=== PATIENT | female | born 2000 | race African-American/Black ===

== ENCOUNTER 2023-01-05 16:42 | Emergency (ER) | payer OTHER ==
[~2023-01-05] VITALS: Ht 157.5 cm; Wt 56.8 kg
[2023-01-05 17:04] LABS: BASO % 0.4 % (0.0-2.0); EOS % 0.4 % (0.0-4.0); GRAN # 4.3 K/mm3 (1.4-6.5); GRAN % 62.3 % (42.2-75.2); HEMOGLOBIN 12.2 g/dl (12.5-16.0); LYMPH # 1.7 K/mm3 (1.2-3.4); LYMPH % 24.2 % (20.0-51.0); MEAN CELL VOLUME 88 fl (80.0-100.0); MEAN CORPUSCULAR HEMOGLOBIN 31 pg (27-31); MEAN CORPUSCULAR HGB CONC 35 g/dl (33.0-37.0); MEAN PLATELET VOLUME 10.2 fl (7.4-10.4); MONO # 0.9 K/mm3 (0.1-0.6); MONO % 12.6 % (1.7-9.3); PLATELET COUNT 221 K/mm3 (130-400); RED BLOOD COUNT 3.95 M/mm3 (4.10-5.30); REDCELL DISTRIBUTION WIDTH-CV 12.1 % (11.5-14.5)
[2023-01-05 17:05] LABS: HEMATOCRIT 34.7 % (37.0-47.0)
[2023-01-05 17:08] LABS: COLLECTION METHOD CLEAN CATCH
[2023-01-05 17:32] LABS: BILIRUBIN,TOTAL 0.4 mg/dL (0.2-1.2); CALCIUM 9.3 mg/dL (8.4-10.2); CREATININE, serum 0.66 mg/dL (0.57-1.11); POTASSIUM 3.9 mmol/L (3.5-4.5); TOTAL PROTEIN 7.3 gm/dL (6.2-8.1)
[2023-01-05 17:50] LABS: MUCOUS Present (NOT PRESENT); URINE BACTERIA Rare /hpf (NONE SEEN); URINE RBC 0-2 /hpf (0-2)
[2023-01-05 17:51] LABS: PH 6.5 (5-8); URINE APPEARANCE Hazy (CLEAR/HAZY); URINE COLOR Yellow (YELLOW); URINE PROTEIN(semi-quant) Negative (NEGATIVE)
[2023-01-05 17:52] LABS: URINE BLOOD Negative (NEGATIVE); URINE GLUCOSE Negative (NEGATIVE); URINE KETONE 1+ (NEGATIVE); URINE NITRATE Negative (NEGATIVE); URINE UROBILINOGEN 0.2 (NEGATIVE)
[2023-01-05 18:39] VITALS: BP 126/79; PULSE 94; TEMP 98
== END 2023-01-05 18:33 | disposition home or self-care (01) ==
LOC: COL.ER 16:42
PROVIDERS: Nurse Practitioner
DX: O99.281 Endocrine, nutritional and metabolic diseases complicating pregnancy, first trimester (principal); E86.0 Dehydration; Z91.040 Latex allergy status; Z3A.11 11 weeks gestation of pregnancy
CPT/HCPCS: J7030